=== PATIENT | female | born 1940 | race African-American/Black ===

== ENCOUNTER 2021-07-16 16:10 | Emergency (ER) | payer MEDICARE ==
[2021-07-16 17:08] LABS: BASOPHIL 0.1 % (0-2); EOSINOPHIL 4.7 % (0-7); HCT 32.7 % (37.0-47.0); HGB 10.6 g/dl (12.5-16.0); LYMPHOCYTE 12.9 % (15-48); MCHC 32.4 g/dL (32.0-36.0); MCV 92.6 fL (78.0-100.0); MONOCYTE 3.6 % (0-12); MPV 11.9 fL (6.0-9.5); NEUTROPHIL 78.1 % (41-80); NRBC 0; PLT 117 K/uL (150-400); RBC 3.53 M/uL (4.20-5.40); RDW 15.3 % (11.5-14.0)
[2021-07-16 17:22] LABS: BILIRUBIN - TOTAL 0.8 mg/dL (0.2-1.0); BUN/CREAT RATIO (CALC) 21.6 RATIO; CREATININE 2.59 mg/dL (0.51-0.95); GLOBULIN (CALCULATION) 3.3 g/dL; POTASSIUM 3.1 mmol/L (3.5-5.1); TOTAL PROTEIN 6.3 g/dL (6.4-8.2)
[2021-07-16 17:42] LABS: BILIRUBIN NEGATIVE (NEGATIVE); BLOOD NEGATIVE Ery/uL (NEGATIVE); CLARITY CLEAR (CLEAR); COLOR YELLOW (YELLOW); GLUCOSE (U) NORMAL (NORMAL); LEUKOCYTES NEGATIVE Leu/uL (NEGATIVE); NITRITE NEGATIVE (NEGATIVE); PROTEIN TRACE (LOW) mg/dL (NEGATIVE); UROBILINOGEN 0.2 mg/dL (0.2-1.0); pH 7.5 (5.0-9.0)
[2021-07-16 17:48] LABS: LACTIC ACID 1.4 mmol/L (0.4-1.9)
[2021-07-16 17:49] LABS: BACTERIA 1+; SQUAMOUS EPITHELIAL CELLS RARE; URINARY WBC RARE
== END 2021-07-16 21:34 | disposition home or self-care (01) ==
LOC: FER 16:10
PROVIDERS: Emergency Medicine
DX: F03.90 Unspecified dementia, unspecified severity, without behavioral disturbance, psychotic disturbance, mood disturbance, and anxiety (principal); B34.9 Viral infection, unspecified; I12.9 Hypertensive chronic kidney disease with stage 1 through stage 4 chronic kidney disease, or unspecified chronic kidney disease; E11.22 Type 2 diabetes mellitus with diabetic chronic kidney disease; N18.9 Chronic kidney disease, unspecified; J44.9 Chronic obstructive pulmonary disease, unspecified; Z20.822 Contact with and (suspected) exposure to COVID-19; Z88.8 Allergy status to other drugs, medicaments and biological substances
CPT/HCPCS: 36415; 71045; 80053; 81001; 83605; 84145; 85025; 87040; 87088; U0002

== ENCOUNTER 2021-07-29 17:16 | Emergency (ER) | payer MEDICARE ==
[2021-07-29 17:55] LABS: BASOPHIL 0.2 % (0-2); EOSINOPHIL 1.6 % (0-7); HCT 34.6 % (37.0-47.0); HGB 10.9 g/dl (12.5-16.0); LYMPHOCYTE 13.8 % (15-48); MCH 29.3 pg (25.0-31.0); MCHC 31.5 g/dL (32.0-36.0); MPV 11.9 fL (6.0-9.5); NEUTROPHIL 78.2 % (41-80); NRBC 0; PLT 176 K/uL (150-400); RBC 3.72 M/uL (4.20-5.40); RDW 16.6 % (11.5-14.0); WBC 8.3 K/uL (4.0-10.5)
[2021-07-29 18:16] LABS: LACTIC ACID 1.3 mmol/L (0.4-1.9)
[2021-07-29 18:20] LABS: ALBUMIN 2.4 g/dL (3.4-5.0); BILIRUBIN - TOTAL 0.4 mg/dL (0.2-1.0); CREATININE 7.39 mg/dL (0.51-0.95); GLOBULIN (CALCULATION) 4.2 g/dL; POTASSIUM 4.5 mmol/L (3.5-5.1); TOTAL PROTEIN 6.6 g/dL (6.4-8.2)
[2021-07-29 18:50] LABS: BILIRUBIN 1+ mg/dL (NEGATIVE); BLOOD 3+ Ery/uL (NEGATIVE); COLOR YELLOW (YELLOW); GLUCOSE (U) NORMAL (NORMAL); LEUKOCYTES 3+ Leu/uL (NEGATIVE); NITRITE NEGATIVE (NEGATIVE); PROTEIN 2+ mg/dL (NEGATIVE); SPECIFIC GRAVITY >=1.030 (1.001-1.030); UROBILINOGEN 0.2 mg/dL (0.2-1.0)
[2021-07-29 18:54] LABS: CLARITY CLOUDY (CLEAR)
[2021-07-29 19:00] LABS: AMORPHOUS URATES CRYSTALS TRACE; BACTERIA 4+; URINARY WBC TNTC
== END 2021-07-29 23:40 | disposition other institution (70) ==
LOC: FER 17:16
PROVIDERS: Emergency Medicine; Internal Medicine
DX: G93.49 Other encephalopathy (principal); N17.9 Acute kidney failure, unspecified; I12.9 Hypertensive chronic kidney disease with stage 1 through stage 4 chronic kidney disease, or unspecified chronic kidney disease; E11.22 Type 2 diabetes mellitus with diabetic chronic kidney disease; N18.30 Chronic kidney disease, stage 3 unspecified; G30.9 Alzheimer's disease, unspecified; F02.80 Dementia in other diseases classified elsewhere, unspecified severity, without behavioral disturbance, psychotic disturbance, mood disturbance, and anxiety; K85.90 Acute pancreatitis without necrosis or infection, unspecified; J44.9 Chronic obstructive pulmonary disease, unspecified; Z20.822 Contact with and (suspected) exposure to COVID-19; Z88.8 Allergy status to other drugs, medicaments and biological substances
CPT/HCPCS: 36415; 36600; 70450; 71250; 80053; 81001; 82140; 82803; 83605; 83690; 83880; 84145; 84443; 84484; 85025; 87040; 87088; 93005; J0696; J3010; J7030; J7040; U0002